=== PATIENT | male | born 2005 | race Native Hawaiian/Other Pacific Islander ===

== ENCOUNTER 2025-02-28 15:04 | Inpatient (IN) | payer OTHER ==
[~2025-02-28] VITALS: Ht 188 cm; Wt 95.0 kg
[2025-02-28] MEDS ORDERED: TADA5TAB2 PO (16:09)
[2025-02-28] MEDS ORDERED: HOME MED LIST COMPLETE! XX SCH (16:10)
[2025-02-28 16:32] LABS: PLATELET COUNT, AUTOMATED 253 10^3/uL (150-450)
[2025-02-28 16:41] LABS: ETHYL ALCOHOL (ETHANOL) < 0.003 % (0.000-0.010)
[2025-02-28 16:43] LABS: ALT/SGPT 33 U/L (7.0-40); AST/SGOT 35 U/L (<34); CALCIUM LEVEL 9.9 MG/DL (8.5-10.1); CARBON DIOXIDE LEVEL 28 MMOL/L (20-31); CHLORIDE LEVEL 103 MMOL/L (98-107); CREATININE FOR GFR 0.81 MG/DL (0.70-1.30); GLOMERULAR FILTRATION RATE > 90.0 (>60); POTASSIUM SERUM 4.7 MMOL/L (3.5-5.1); SALICYLATE LEVEL < 3.0 MG/DL (<30); SODIUM LEVEL 141 MMOL/L (136-145)
[2025-02-28 17:04] LABS: BARBITURATES URINE NEGATIVE (NEGATIVE); COCAINE METABOLITE URINE NEGATIVE (NEGATIVE)
[2025-02-28 17:06] LABS: AMPHETAMINES LEVEL URINE NEGATIVE (NEGATIVE); BENZODIAZEPINES URINE NEGATIVE (NEGATIVE); CANNABINOIDS URINE NEGATIVE (NEGATIVE); METHADONE URINE NEGATIVE (NEGATIVE); OPIATES URINE NEGATIVE (NEGATIVE); PHENCYCLIDINE URINE NEGATIVE (NEGATIVE)
[2025-03-01] MEDS: NICOTINE 14 MG/24 HR TRANSDERMAL TD SCH (09:00)
[2025-03-01] MEDS ORDERED: IBUPROFEN 400 MG TAB PO PRN (12:05)
[2025-03-01] MEDS ORDERED: OLANZapine 5 MG TAB PO PRN (12:05)
[2025-03-01] MEDS ORDERED: MOM 30 ML SUSPENSION UDC PO PRN (12:05)
[2025-03-01] MEDS ORDERED: ACETAMINOPHEN 325 MG TAB PO PRN (12:05)
[2025-03-01] MEDS ORDERED: traZODone 50 MG TAB PO PRN (12:05)
[2025-03-01] MEDS ORDERED: MAALOX 30 ML SUSP *UDC PO PRN (12:05)
[2025-03-01] MEDS ORDERED: LORazepam 1 MG TAB PO PRN (12:05)
[2025-03-01] MEDS ORDERED: HALOPERIDOL 5 MG TAB PO PRN (12:05)
[2025-03-01 13:00] VITALS: BP 140/71; TEMP 97.2; O2SAT 100
[2025-03-02 06:53] VITALS: BP 113/55; TEMP 97.7; O2SAT 100
[2025-03-02 15:10] VITALS: BP 112/61; TEMP 97.8; O2SAT 98
[2025-03-02] MEDS: PARoxetine 10MG TABLET PO SCH (15:52)
[2025-03-03 07:06] VITALS: BP 119/55; TEMP 97.2; O2SAT 98
[2025-03-03 07:35] VITALS: BP 119/55; TEMP 97.2; O2SAT 98
[2025-03-03 16:03] VITALS: BP 136/58; TEMP 98.3; O2SAT 99
[2025-03-04 08:31] VITALS: BP 118/58; TEMP 97.1; O2SAT 100
[2025-03-04] MEDS: PARoxetine 20MG TABLET PO SCH (10:03)
[2025-03-04 16:29] VITALS: BP 113/58; TEMP 97.4; O2SAT 96
[2025-03-05 06:31] VITALS: BP 102/53; TEMP 96.9; O2SAT 98
[2025-03-05 15:32] VITALS: BP 135/68; TEMP 98.7; O2SAT 95
[2025-03-06 06:34] VITALS: BP 119/75; TEMP 97.6; O2SAT 98
[2025-03-06] MEDS ORDERED: PARO20TA3 PO (08:42)
== END 2025-03-06 12:25 | disposition home or self-care (01) | DRG 885 ==
LOC: M ED 15:04 → M ED INP 03-01 12:05 → M PSY 03-01 13:00
PROVIDERS: ADMIT Internal Medicine; ATTEND Internal Medicine
DX: F33.1 Major depressive disorder, recurrent, moderate (principal); R45.851 Suicidal ideations; F41.9 Anxiety disorder, unspecified; F17.200 Nicotine dependence, unspecified, uncomplicated; Z62.810 Personal history of physical and sexual abuse in childhood; Z56.6 Other physical and mental strain related to work